=== PATIENT | male | born 2000 ===

== ENCOUNTER 2021-12-19 17:20 | Emergency (ER) | payer MEDICAID ==
[~2021-12-19] VITALS: Ht 172.7 cm; Wt 59.1 kg
--- NOTE | 2021-12-19 17:35 | NUR ---
pt given haldo, benadryl, ativan IM and soft restraints initiated. parents at bedside
[2021-12-19] MEDS ORDERED: LORazepam 2 mg/ml vial IM ONE (17:40)
[2021-12-19] MEDS ORDERED: diphenhydrAMINE 50 mg/ml inj IM ONE (17:40)
[2021-12-19] MEDS ORDERED: haloperidol lactate 5mg/ml inj IM ONE ×4 (17:40→19:25)
--- NOTE | 2021-12-19 18:15 | NUR ---
Poison control called spoke with Michelle pharmacist recommends ASA and BMP every 2 hours with 2 consecutive down trending levels. If ASA >35 start bicarb drip If ASA >100 call poison control for possible dialysis
[2021-12-19 18:27] LABS: BASOPHILS # (AUTO) 0.1 X10'3 (0-0.2); BASOPHILS % (AUTO) 0.4 % (0-1); EOSINOPHILS # (AUTO) 3.2 X10'3 (0-0.9); EOSINOPHILS % (AUTO) 17.4 % (0-6); HEMOGLOBIN 14.8 g/dl (14.0-17.9); LYMPHOCYTES # (AUTO) 5.1 X10'3 (1.1-4.8); LYMPHOCYTES % (AUTO) 28.2 % (21-51); MEAN CORPUSCULAR HEMOGLOBIN 30.5 PG (27.0-31.0); MEAN CORPUSCULAR VOLUME 92.5 FL (78-98); MEAN PLATELET VOLUME 9.6 FL (7.4-10.4); MONOCYTES # (AUTO) 1.1 X10'3 (0-0.9); MONOCYTES % (AUTO) 5.9 % (2-12); NEUTROPHILS # (AUTO) 8.8 X10'3 (1.8-7.7); NEUTROPHILS % (AUTO) 48.1 % (42-75); PLATELET COUNT 362 X10'3 (140-440); RED BLOOD COUNT 4.86 X10'6 (4.70-6.10); WHITE BLOOD COUNT 18.2 X10'3 (4.5-11.0)
[2021-12-19] MEDS ORDERED: LIDOcaine 2% 10ml TOPICAL JELLY (Urojet) MM ONE (18:35)
[2021-12-19] MEDS ORDERED: LORazepam 2 mg/ml vial ONE (18:43)
[2021-12-19] MEDS ORDERED: haloperidol lactate 5mg/ml inj IV ONE (18:45)
[2021-12-19] MEDS ORDERED: LORazepam 2 mg/ml vial IV ONE (18:45)
[2021-12-19 18:48] LABS: ALANINE AMINOTRANSFERASE 39 U/L (12-78); ALBUMIN 4.5 G/DL (3.4-5.0); ALBUMIN/GLOBULIN RATIO 1.2 (1.1-1.5); ALKALINE PHOSPHATASE 83 IU/L (46-116); ASPARTATE AMINO TRANSFERASE 22 U/L (10-37); BILIRUBIN,TOTAL 0.3 MG/DL (0.1-1.0); BLOOD UREA NITROGEN 7 MG/DL (7-18); BUN/CREATININE RATIO 5.8 (5.4-32.0); CALCIUM 9.5 MG/DL (8.5-10.1); CHLORIDE 100 MMOL/L (99-107); GLUCOSE 125 MG/DL (70-104); POTASSIUM 3.5 MMOL/L (3.5-5.1); SODIUM 140 MMOL/L (135-145); TOTAL PROTEIN 8.3 G/DL (6.4-8.2); eGFR 76 ML/MIN
[2021-12-19 18:51] LABS: ACETAMINOPHEN < 2.0 UG/ML (10-30); ETHANOL < 0.010 GM/DL (0.0-0.010)
[2021-12-19 18:59] LABS: ANION GAP 28 (8-16)
[2021-12-19 19:13] LABS: TOTAL CARBON DIOXIDE 11.7 MMOL/L (24-32)
[2021-12-19 19:27] LABS: CLARITY,URINE CLEAR (Clear); COLOR,URINE YELLOW (Yellow); GLUCOSE, URINE NEGATIVE (Neg); KETONES,URINE NEGATIVE (Neg); LEUKOCYTE ESTERASE ,URINE NEGATIVE (Neg); NITRITES, URINE NEGATIVE (Neg); OCCULT BLOOD,URINE SMALL (Neg); PROTEIN,URINE NEGATIVE (Neg); UROBILINOGEN,URINE 0.2 E.U/dL (0.2-1.0)
[2021-12-19 19:28] LABS: UA COLLECTION TYPE STRAIGHT CATH
[2021-12-19 19:30] LABS: URINE AMPHETAMINE SCREEN NEGATIVE (Neg); URINE BARBITUATE SCREEN NEGATIVE (Neg); URINE BENZODIAZEPINES SCREEN NEGATIVE (Neg); URINE CANNABINOID SCREEN NEGATIVE (Neg); URINE COCAINE SCREEN NEGATIVE (Neg); URINE METHADONE SCREEN NEGATIVE (Neg); URINE OPIATE SCREEN NEGATIVE (Neg); URINE PHENCYCLIDINE SCREEN NEGATIVE (Neg)
--- NOTE | 2021-12-19 19:36 | NUR ---
PARENTS REFUSED COVID SWAB
[2021-12-19 19:37] LABS: BACTERIA,URINE FEW /HPF (Neg); MUCUS STRANDS FEW /LPF (Neg); SQUAMOUS EPITHELIAL CELL,UR FEW /LPF (FEW); WBC,URINE 0-4 /HPF (0-4)
--- NOTE | 2021-12-19 19:37 | NUR ---
PARENTS ARE REFUSING EKG
[2021-12-19 19:39] LABS: ABG BASE EXCESS -1.2 mmol/L (-2.0-2.0); ABG HCO3 22.9 mmol/L (22.0-26.0); ABG OXYGEN SATURATION 94.7 % (94-97); ABG PCO2 (T) 36.9 mmHg (35.0-48.0); ABG PO2 (T) 73.1 mmHg (75.0-100.0); ALLEN'S TEST POSITIVE; FCOHb 0.5 % (0.0-3.9); FMetHb 0.2 % (0.0-1.5); TOTAL HEMOGLOBIN 14.8 G/dl (14.0-18.0)
[2021-12-19 21:20] LABS: ALBUMIN 4.3 G/DL (3.4-5.0); ANION GAP 8 (8-16); BLOOD UREA NITROGEN 8 MG/DL (7-18); BUN/CREATININE RATIO 11.1 (5.4-32.0); CHLORIDE 108 MMOL/L (99-107); CREATININE 0.72 MG/DL (0.60-1.10); GLUCOSE 94 MG/DL (70-104); POTASSIUM 3.6 MMOL/L (3.5-5.1); SODIUM 141 MMOL/L (135-145); TOTAL CARBON DIOXIDE 24.8 MMOL/L (24-32); eGFR > 90 ML/MIN
[2021-12-19 23:01] LABS: ALBUMIN 4.3 G/DL (3.4-5.0); ANION GAP 11 (8-16); BLOOD UREA NITROGEN 9 MG/DL (7-18); BUN/CREATININE RATIO 12.5 (5.4-32.0); CALCIUM 8.6 MG/DL (8.5-10.1); CHLORIDE 108 MMOL/L (99-107); CREATININE 0.72 MG/DL (0.60-1.10); GLUCOSE 99 MG/DL (70-104); SODIUM 143 MMOL/L (135-145); TOTAL CARBON DIOXIDE 23.7 MMOL/L (24-32); eGFR > 90 ML/MIN
--- NOTE | 2021-12-19 23:09 | NUR ---
[facility] REPORT FAXED PER DR. Johnson NURSING ORDER. REPORT PLACED IN PATIENTS CHART
--- NOTE | 2021-12-19 23:30 | NUR ---
RESUME CARE FROM PREVIOUS RN, PATIENT IN THE ROOM WITH PARENTS NO DISTRESS NOTED UNLESS STAFF COMES CLOSE THEN PATIENT IS BRIAN HYPERACTIVE.
[2021-12-20 01:05] LABS: ANION GAP 11 (8-16); BLOOD UREA NITROGEN 8 MG/DL (7-18); BUN/CREATININE RATIO 9.5 (5.4-32.0); CALCIUM 8.9 MG/DL (8.5-10.1); CHLORIDE 105 MMOL/L (99-107); CREATININE 0.84 MG/DL (0.60-1.10); GLUCOSE 101 MG/DL (70-104); POTASSIUM 3.6 MMOL/L (3.5-5.1); SODIUM 140 MMOL/L (135-145); TOTAL CARBON DIOXIDE 23.6 MMOL/L (24-32); eGFR > 90 ML/MIN
[2021-12-20 02:47] VITALS: BP 97/55
== END 2021-12-20 03:09 | disposition home or self-care (01) ==
LOC: ER 17:21
DX: R41.82 Altered mental status, unspecified (principal); T39.015A Adverse effect of aspirin, initial encounter; F84.0 Autistic disorder; Y92.89 Other specified places as the place of occurrence of the external cause
CPT/HCPCS: 36415; 36600; 80048; 80053; 80305; 80320; 80329; 81001; 82803; 84443; 85018; 85025; 96372; 96374; 96375; 99285; J1200; J1630; J2060